=== PATIENT | male | born 1955 | race Caucasian/White ===

== ENCOUNTER 2023-05-30 15:29 | Emergency (ER) | payer MEDICARE, SELFPAY ==
[2023-05-30 15:31] VITALS: BP 107/70; PULSE 89; RESP 18; TEMP 36.6; O2SAT 99; BMI 23.1
--- NOTE | 2023-05-30 15:45 | EX.ED.DYSGE1 ---
HPI History of Present Illness Chief Complaint: Rash Informant: patient Narrative Narrative: 67-year-old male states about 3 days ago he noticed a couple red spots on his right mid axillary chest wall. Since then he has developed burning pain from the mid back along the rib to the anterior aspect of his chest. He notes increased amount of rash. He states he has been trying to squeeze these clear blisters. He has been applying tea tree oil. He denies any significant medical problems. He notes an allergy to penicillin. Patient notes some nausea. Denies any fever. PFSH PFS Medical History Colitis Allergy/AdvReac Type Severity Reaction Status Date / Time Penicillins Allergy Intermediate PT UNSURE Verified 05/30/23 15:34 OF REACTION Social History Smoking Status: Never smoker ROS ROS ED Constitutional Constitutional ED: Denies chills or weight loss Eyes Eyes: Denies change in vision or diplopia ENT ENT ED: Denies ear pain, rhinorrhea or sore throat Cardiovascular Cardiovascular: Reports chest pain; Denies orthopnea, palpitations or racing heartbeat Respiratory/Chest Respiratory/Chest: Denies cough, dyspnea or orthopnea Gastrointestinal Gastrointestinal: Denies abdominal pain, diarrhea, nausea or vomiting Genitourinary Genitourinary ED: Denies dysuria, hematuria or urinary frequency Musculoskeletal Musculoskeletal: Denies arthralgias or myalgias Integumentary Reports rash; Denies abscess Neurologic Neurologic: Reports paresthesias; Denies headache(s) or weakness Psychiatric Psychiatric: Denies anxiety, depression, suicidal ideation or suicidal thoughts Endocrine Endocrinology: Denies polydipsia, polyphagia or polyuria Allergic/Immunologic Allergic/Immunologic ED: Denies mouth swelling, tongue swelling or urticaria EXAM Physical Exam Const Vital Signs: 05/30/23 15:31 Temperature 98 F Temperature Source Temporal Pulse Rate 89 Respiratory Rate 18 Blood Pressure 107/70 Blood Pressure Mean 82 Pulse Ox 99 Oxygen Delivery Method Room Air Positive well nourished and well developed General Appearance ED: well developed HEENT Reports normocephalic, head/scalp atraumatic and moist mucous membranes Eyes PERRL and EOMs intact bilaterally Neck no lymphadenopathy, supple and no JVD Resp normal respiratory effort and clear to auscultation bilaterally Cardio regular rate, regular rhythm and no murmurs GI normal to inspection, nondistended, normoactive bowel sounds and non-tender Palpation: soft Back/Spine no CVA tenderness and normal ROM Extremity normal to inspection General Extremety ED: Negative for edema General Extremity: Negative for edema Neuro oriented x3 and CN's II-XII intact bilaterally Sensorium / Orientation: alert Motor Exam: strength 5/5 throughout Psych mental status grossly normal Mood & Affect: Negative for depressed or tearful Skin no wounds Skin Narrative: There is a vesicular rash with erythematous base appearing in clusters and solitary lesions starting in the mid thoracic back around T7 wrapping around the chest wall to the anterior chest. This appears consistent with zoster. MDM MDM MDM Narrative Medical decision making narrative: Patient will be started on valacyclovir and prednisone pain medication and nausea medication. We talked about postherpetic neuralgia. We talked about his ability to transmit the virus. We talked about the pathophysiology. Patient notes understanding will follow-up as needed return if worsening Discharge Plan Triage Chief Complaint: Rash ED Provider: Chuy Sepulveda
--- OUTSIDE RECORDS SUMMARY | 2023-05-30 16:13 | XMS RPT_ITS | CCD ---
Author Name Unknown Address [address] [place] [address] Organization [facility] Care Team Providers Care Radio Repair Teacher Name Role Phone MELISADAMIAN PereyraSara Unavailable Unavailable NO FAMILY PHYSICIAN, [id number] Unavailable Unavail able Results Test Name Value Interpretation Reference Range Facil ity Encounters Encounter Date Encounter Type Care Provider Facility Start: 04-06-2023 Emergency department patient visit Facility:[facility] Start: 01-24-2017 End: 01-24-2017 Ambulatory MAZEN MELISA Facility:[facility] Summary Purpose Family History No Family History Records FoundNo Family History Records Found Advance Directives No Advanced Directives Records FoundNo Advanced Directives Records Found Additional Source Comments (unrecognized sect ion and content) No Status Records FoundNo Status Records Found INFORMATION SOURCE (unrecogn ized section and content) DATE CREATED AUTHOR AUTHOR'S ORGANIZ ATION 04/07/2023 [facility] FOR RECORDS PERTAINING TO PATIENTS WHO ARE OR HAVE BEEN ENROLLED IN A CHEMICAL DEPENDENCY/SUBSTANCEABUSE PROGRAM, SOME INFORMATION MAY BE OMITTED. This clinical summary was aggregated from multiple sources. Caution should be exercised in using it in the provision of clinical care. This summary normalizes information from multiple sources, and as a consequence, information in this document may materially change the coding, format and clinical context of patient data. In addition, data may be omitted in some cases. CLINICAL DECISIONS SHOULD BE BASED ON THE PRIMARY CLINICAL RECORDS. [email or web address] [email or web address]. provides no warranty or guarantee of the accuracy or completeness of information in this document.
== END 2023-05-30 16:12 | disposition home or self-care (01) ==
LOC: ED 16:11
PROVIDERS: Emergency Provider Emergency Medicine; Visit Provider Emergency Medicine
DX: R21 Rash and other nonspecific skin eruption (principal); R07.81 Pleurodynia; R11.0 Nausea
CPT/HCPCS: 99282